=== PATIENT | female | born 1965 | race Caucasian/White ===

== ENCOUNTER 2018-11-19 08:32 | Outpatient (CLI) | payer BC ==
[2013-05-26 22:58] VITALS: BP 142/74
--- NOTE | 2018-11-24 12:31 | History and Physical Report ---
CHIEF COMPLAINT: Right dorsal foot painful bump. HISTORY OF PRESENT ILLNESS: Patient has developed dorsal foot bump that has been quite painful over her right dorsal foot proximally. The patient has had this for several months and it seems to be worsening in terms of pain and discomfort. She has been trying to use different shoes and continues to have lots of pain requiring her to try and change the type of shoes she is wearing and still ends up taking her shoes off at the end of the day with too much pain. The patient does not admit to any known trauma or problems. We have discussed changing the lacing on her shoes. The patient has elected to go forward at this time after discussing conservative and surgical management to remove the right dorsal foot bump, which I believe is a ganglion cyst. This soft tissue mass is to be removed and we will check to see if there is any sort of osseous bump underneath that we need to resect. The patient understands the plan for this on the right dorsal foot and would like to go forward with surgery. The patient signed the consent and it was placed in the chart. PAST MEDICAL HISTORY: 1. Restless leg syndrome. 2. Hypothyroidism. 3. Some water retention. She takes medicine for each of these things. CURRENT MEDICATIONS: See medication reconciliation form for details of medications. ALLERGIES AND REACTIONS: 1. Medical glue. 2. Surgical scrub with chlorhexidine. 3. No known drug allergies. The patient states that she developed a red rash with the chlorhexidine previously. REVIEW OF PERTINENT SYSTEMS: The patient denies any abnormalities in terms of headaches, vision change, hearing changes, sore throat, palpitations, chest pain, difficulty breathing, or sleep apnea. No abdominal pain or discomfort or digestive problems. No painful bowel movements are urination. No blood in urine or bowel movements. No skin rashes, etc. PERTINENT PHYSICAL EXAMINATION: Head: Atraumatic and normocephalic. There is no evidence of skin lesions or masses on the head or neck. Neck: There are no palpable lymph nodes. Heart: Normal S1 and S2 sounds. No signs of atrial fibrillation. Abdomen: Normal bowel sounds in all 4 quadrants and no pain with palpation in all 4 quadrants, nor near the kidneys. Psychiatric: Mental status is grossly normal and affect is normal. Lower Extremity Focused Exam: Vascular: There are 2+ DP and PT pulses bilaterally. Capillary refill time is less than 3 seconds to the toes bilaterally. No edema is noted bilaterally. Dermatologic: There is no erythema, discoloration, and pre-ulcerative lesions or skin lesions noted to the right foot. There is a small mass noted over the dorsal proximal mid-foot of the right foot but it seems to be under the skin level. Musculoskeletal: There is pain on palpation noted at the right mid-foot bump dorsally. The bump feels mobile, encapsulated, and feels overall soft. The bump is positive for transillumination at the bump at her last exam. There are no other gross abnormalities noted. Neurologic: Light touch sensation is intact to the toes bilaterally. ASSESSMENT: 1. Soft tissue mass over the right dorsal mid-foot. M79.9. 2. Possible exostosis of bone of foot. M89.8X7. PLAN: Conservative and surgical options were discussed with the patient and the patient has elected to go forward with surgery at this time to remove the soft tissue mass and possibly perform an exostectomy of the underlying bone as needed. The patient understood the risks and benefits of the procedure that include, but are not limited to, bleeding, infection, undercorrection, overcorrection, need for additional surgery, possible recurrence, numbness, loss of limb, and loss of life. The patient understood that we discussed most of these options of risk, however, there are more risks noted than what we discussed. The patient agreed and signed the consent to go forward with surgery at this time for the above. Consent was signed and placed in the chart. A full preoperative discussion was held with the patient including preoperative, intraoperative, and postoperative plans. The patient will obtain a CBC, CMP, and an EKG mainly because of her age. The patient understands that she will obtain these labs and imaging 1 or 2 days prior to surgery. We are looking at doing surgery hopefully next week on if we can get the operating room time. The patient understands that we may need to do a different day possibly, however. The patient understands that we will plan on using a Betadine prep instead of the chlorhexidine in order to protect her from her allergy she mentioned. We will also plan on doing normal Vicryl and nylon sutures, as opposed to any sort of adhesive and Steri-Strips, as she had issues with a medical glue of some kind previously. The patient discussed any questions or comments or concerns that she had regarding the procedure or postoperatively. All questions were answered satisfactorily to the patient. The patient understands that she will be placed in a surgical shoe with a nice large dressing and will be in that surgical shoe for 2 to 4 weeks at least. The patient understands that she will not eat or drink anything after midnight the night before and she is to avoid all nonsteroidal anti-inflammatory or blood thinner medication for 7 days before surgery and no herbal supplements or diet drugs, etc. from now on until surgery. We went over a descriptive illustration of what the plan is for surgery and she signed stating that she reviewed that with me. The patient was sent home with some things to read and consider prior to surgery regarding preoperative planning. The patient had no further questions and is looking forward to surgery next week. She was quite nervous coming in today; however, at this time, she is feeling much more comfortable with the plan going forward. Chrissy Gruber, her primary care doctor, had a surgical clearance faxed over to her and she has responded with the fact that the patient is cleared for surgery and that everything is fine. She states that, "She is very healthy and cleared for surgery." This was dated November 16, 2018, and we have clearance form with us in her chart. Again, the patient had no further questions and the plan is to go forward with surgery this next week. Again, a CBC, CMP, EKG, as well as an x-ray of the right foot, 3 views, weightbearing, and an x-ray of the left ankle, 3 views, weightbearing, the last of which is for further workup of a previous visit for left foot Achilles tendonitis that we did not discuss today. We will review these together later on. We will see the patient likely on the Friday following surgery for follow up and she will stay in her dressings and leave them clean and dry until then. ASHU
== END 2018-11-19 08:33 ==
LOC: POD 08:32
PROVIDERS: ATTEND Podiatrist Foot & Ankle Surgery
DX: R22.41 Localized swelling, mass and lump, right lower limb (principal); G25.81 Restless legs syndrome; E03.9 Hypothyroidism, unspecified; Z01.818 Encounter for other preprocedural examination
CPT/HCPCS: 99213

== ENCOUNTER 2018-12-14 15:51 | Outpatient (CLI) | payer BC ==
[2013-05-26 22:58] VITALS: BP 142/74
[2018-12-14 16:10] LABS: EOSINOPHILS % 2.7 % (0.0-6.8); MEAN CORPUSCULAR HEMOGLOBIN 28.7 pg (28.0-34.0); MONOCYTES % 5.9 % (0.0-11.0)
[2018-12-14 16:11] LABS: BASOPHILS % 0.7 (0.0-1.5); NEUTROPHILS # 5.7 # k/uL (1.4-7.7)
[2018-12-14 16:32] LABS: eGFR (Non-African) > 60
[2018-12-16] MEDS ORDERED: diphenhydrAMINE HCL 25 MG TABLET PO ONE (10:30)
== END 2018-12-14 15:53 ==
LOC: LAB 15:51
PROVIDERS: ATTEND Podiatrist Foot & Ankle Surgery
DX: Z01.812 Encounter for preprocedural laboratory examination (principal); M67.471 Ganglion, right ankle and foot; M79.9 Soft tissue disorder, unspecified
CPT/HCPCS: 36415; 80053; 85025

== ENCOUNTER 2018-12-16 06:00 | Day surgery (SDC) | payer BC ==
[2013-05-26 22:58] VITALS: BP 142/74
[2018-12-16] MEDS ORDERED: LACTATED RINGERS 1,000 ML IV.SOLN IV ONE (08:48)
[2018-12-16] MEDS ORDERED: PROPOFOL 200 MG/20 ML VIAL IV ONE (08:48)
[2018-12-16] MEDS ORDERED: SODIUM CHLORIDE IRRIG SOLUTION 1,000 ML IR ONE (08:48)
[2018-12-16] MEDS ORDERED: LIDOCAINE HCL 2% PF 100MG/5ML VIAL IJ ONE (08:48)
[2018-12-16] MEDS ORDERED: BUPIVACAINE HCL 0.25% (2.5MG/ML) PF 30 ML VIAL IJ ONE (08:48)
[2018-12-16] MEDS ORDERED: LIDOCAINE HCL 1% PF 300MG/30ML VIAL ONE (08:48)
[2018-12-16] MEDS ORDERED: MIDAZOLAM HCL 2 MG/2 ML VIAL ONE (08:48)
[2018-12-16] MEDS ORDERED: fentaNYL CITRATE/PF 100 MCG/2 ML INJ. ONE (08:48)
[2018-12-16] MEDS ORDERED: HYDROcodone /APAP 5/325 1 EACH TABLET ONE (09:54)
--- NOTE | 2018-12-16 11:31 | Operative Note ---
OPERATIVE REPORT PATIENT NAME: CAMMY MCMILLAN. DATE OF : 1965 CHART#: [id number] PROCEDURE DATE: 12/16/2018 PREOPERATIVE DIAGNOSES: 1. Soft tissue mass, right foot. 2. Exostosis, right foot. POSTOPERATIVE DIAGNOSIS: Soft tissue mass, right foot, no exostosis. PROCEDURE PERFORMED: Soft tissue mass excision, right foot. SURGEON: Shane Dorman D.P.M. ASSISTANTS: None. ANESTHESIA: Monitored anesthesia care (MAC) with local. See below. HEMOSTASIS: Ankle tourniquet, right. ESTIMATED BLOOD LOSS: Less than 5 mL. MATERIALS: None. INJECTABLES: 8 mL of a 1:1 mix of 1% lidocaine plain and 0.25% Marcaine plain injected just proximal to the surgery site. COMPLICATIONS: None. INDICATIONS FOR PROCEDURE: Cammy Orr is a female who presented recently with a right dorsal foot bump that has been quite painful. She has tried different shoes and other things and has had a hard time getting very much relief from the pain and discomfort of this bump that comes and goes. The patient elected to go forward with surgery to have the bump removed as well if there was any sort of osseous bump underneath to have that removed. X-rays were obtained which did not for sure demonstrate much for bone underneath the soft tissue mass. The patient had the risks and benefits of surgery discussed with her that include but are not limited to bleeding, infection, undercorrection, overcorrection, numbness, possible recurrence of the cyst, loss of limb and loss of life. The patient has agreed both by written and verbal consent to go forward with surgery at this time. The patient signed the consent and it was placed in the chart. PROCEDURE IN DETAIL: The patient was brought to the preoperative area today and the operative site was marked with an indelible pen. Under mild sedation the patient was brought into the operating room and placed on the table in the supine position. Two grams of Ancef were given to the patient through IV. A time-out was called, and all present in the operating room team were in agreement with the patient name, location and procedure. Monitored anesthesia care (MAC) anesthesia was then obtained for the patient and under this anesthesia local anesthesia was then administered just proximal to the right dorsal foot bump utilizing a V-block consisting of 8 mL of a 1:1 mix of 1% lidocaine plain and 0.25% Marcaine plain. An ankle tourniquet was applied with appropriate padding underneath. The foot was then scrubbed with Betadine prep and prepped and draped appropriately per normal protocol. The patient could not use chlorhexidine due to her surgical scrub allergy mentioned. Again, Betadine was used. The foot was then exsanguinated with an Esmarch bandage and the ankle tourniquet inflated to 250 mmHg. A small, approximately 3-4 cm linear incision was carried out overlying the dorsal soft tissue bump on the proximal midfoot. This was opened up carefully with careful dissection down through the subcutaneous tissues. The nerves were visualized and retracted appropriately. A portion of the extensor aponeurosis was cut in order to access the tendons underneath. After careful dissection around the subcutaneous tissues and muscle belly and down to palpation of the bone I was unable to find any obvious significant soft tissue mass. At one point in time there was increased fluid in the area and I believe that a rupture of the small mass that was there occurred. I was unable to find a clear stalk from anything from bone or tendon and after careful dissection and exploration trying to find anything significant to send I was unable to find anything. I also was unable to feel an obvious soft tissue mass anymore at the end of the procedure. The wound site was flushed with a copious amount of normal saline. As I was unable to find a stalk, I was unable to Bovie anything specific to try and help prevent a recurrence. I am hoping that it was ruptured and the soft tissue mass destroyed enough that it will not return. After having washed it with a copious amount of normal saline, a small portion of the extensor aponeurosis was reattached with 3-0 Vicryl in a single simple interrupted suture fashion. Vicryl was then utilized to close the subcutaneous tissue layer with 2 stitches, simple interrupted, and then finally the skin was closed with 4-0 nylon in a horizontal interrupted suture of mattress fashion. The dressings were then applied consisting of Betadine Adaptic 4x4 gauze, Kerlix and a 4-inch Roger wrap. The tourniquet was deflated at I believe the 30 minute jeff and a prompt hyperemic response was noted to all the toes of the right foot. The patient was then recovered from MAC anesthesia and transferred to the recovery room with vital signs stable, and vascular status intact to all the toes of the right foot. The patient tolerated, and did great with the procedure. She had a surgical shoe given to her and she was sent home today with appropriate instructions and pain medication prescription for [place] 5/325 mg. The patient was sent home with a prescription for 30 of them to use as needed, every 4-6 hours. The patient is to keep the dressing clean, dry and intact and I will see the patient on Friday in the office at [facility] for a dressing change and to make sure it is looking good. If any concerns, they know to contact me immediately, even over the weekend, to come into the ER as needed. The family had no further questions, nor did the patient, and we will see the patient on Friday. Unfortunately, there was nothing found to send for soft tissue mass excision but I do believe that we were able to pull out a little bit of tissue that was insignificant in terms of size and unable really to be sent. I believe that she will do well, and recover well. X SHANE DORMAN D.P.M. DATE SIGNED TIME SIGNED Ynes JOB#: [id number] MTDD
--- NOTE | 2018-12-16 14:08 | Diagnostic Imaging Report ---
VICKY DORMAN [facility] [address] [facility] [address] [id number] Report Submission Date: Dec 16, 2018 6:46:59 AM FIELD [employer]SEM[employer] SUPERVISOR Patient Study Name: RITA LOPEZ Date: Dec 16, 2018 6:21:45 AM FIELD [employer]SEM[employer] SUPERVISOR Modality Type: DX Gender: F Description: FOOT 3 VIEWS OR MORE : [birth year] Institution: [facility] Physician: VICKY DORMAN Right foot History: Soft tissue mass Three views of the right foot were obtained which demonstrate a large plantar and small dorsal calcaneal spur. Mild degenerative findings are present at the 1st metatarsal tarsal joint space. Otherwise, no osseous abnormalities are noted. Impression: Large plantar and small dorsal calcaneal spur. 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 Otherwise, no osseous abnormalities are noted. No soft tissue mass is evident by plain radiographs. Electronically signed on Dec 16, 2018 6:46:59 AM FIELD ASSEMBLY SUPERVISOR by: Gena WAKEFIELD
== END 2018-12-16 10:55 | disposition home or self-care (01) ==
LOC: OPSURG 06:00
PROVIDERS: ATTEND Podiatrist Foot & Ankle Surgery
DX: M79.89 Other specified soft tissue disorders (principal)
CPT/HCPCS: 28043; 73630; 93005; A9270; J2001; J2250; J2704; J3010; J7120